=== PATIENT | female | born 1985 | race Caucasian/White ===

== ENCOUNTER 2020-06-18 18:43 | Inpatient (IN) ==
[2020-06-19] MEDS ORDERED: OXYTOCIN 30 UNITS/500 ML BAG IV PRN ×3 (10:27→18:21)
[2020-06-19 10:46] LABS: Hemoglobin 11.6 g/dL (12.0-16.0); Mean Corpuscular Hemoglobin 29.8 pg (25-34); Mean Platelet Volume 11.2 fL (7.4-10.4); Platelet Count 208 K/uL (130-400); RDW Coefficient of Variation 13.2 % (11.5-14.5); RDW Standard Deviation 43.1 fL (36.4-46.3); Red Blood Count 3.89 M/uL (4.2-5.4); White Blood Count 8.73 K/uL (4.8-10.8)
[2020-06-19 10:55] LABS: Mean Corpuscular Hgb Conc 33.1 g/dL (32-36)
[2020-06-19] MEDS: LACTATED RINGER'S 1,000 ML IV PRN ×2 (11:37→15:06)
[2020-06-19] MEDS ORDERED: BUPIVACAINE 0.25% 30 ML VIAL ONE (15:33)
[2020-06-19] MEDS ORDERED: ePHEDrine sulfate 50 MG/ML AMP ONE (15:33)
[2020-06-19] MEDS ORDERED: fentaNYL citrate 100 MCG/2 ML VIAL ONE (15:33)
[2020-06-19] MEDS ORDERED: fentaNYL 2MCG/ML ROPIV 1.25MG/ML 100 ML BAG EPI ONE (15:34)
[2020-06-19] MEDS ORDERED: NALOXONE HCL 0.4 MG/1 ML VIAL/CARP IV PRN (15:46)
[2020-06-19] MEDS ORDERED: ONDANSETRON INJ 2 MG/ML 2 ML VIAL IV PRN (15:46)
[2020-06-19] MEDS ORDERED: fentaNYL 2MCG/ML ROPIV 1.25MG/ML 100 ML BAG EPI PRN (15:46)
[2020-06-19] MEDS ORDERED: NALOXONE HCL 1 MG in SODIUM CHLORIDE 0.9% 1000ML 1,000 ML IV PRN (15:46)
[2020-06-19] MEDS ORDERED: ePHEDrine sulfate 50 MG/ML AMP IV PRN (15:46)
[2020-06-19] MEDS ORDERED: DiphenhydrAMINE HCL 50 MG/ML VIAL IV PRN (15:46)
--- NOTE | 2020-06-19 15:47 | Anesthesiology Consultation ---
Date of Service June 19, 2020 Assessment & Plan (1) Encounter for pre-operative examination: Chart Review Chart Review: Patient NOT seen in Pre Admission Testing and Acceptable Risk for Labor Epidural Consults Requested none ASA ASA2 Proposed Anesthesia Anesthesia Type: Labor Epidural Risk / Benefits Reviewed With: PT / POA / Parent / Guardian, Accepts Plan and Informed Consent Obtained History Height/Weight Height: 5 ft 5 in Weight: 68.946 kg Allergies Allergy/AdvReac Type Severity Reaction Status Date / Time cat dander Allergy Severe Anaphylaxis Verified 06/19/20 11:00 levofloxacin Allergy Unknown dizziness Verified 06/19/20 11:00 sumatriptan Allergy Unknown UNKNOWN Verified 06/19/20 11:00 Medications Home Medications Medication Instructions Recorded Confirmed Last Taken prenat.vits,stephenie,gpt-czzb-ligdx 1 tab PO DAILY 10/02/19 06/19/20 Unknown ondansetron 8 mg disintegrating 8 mg PO DAILY #30 tab 12/16/19 06/19/20 Unknown tablet promethazine 25 mg tablet 25 mg PO Q6H PRN #20 tab 01/06/20 06/19/20 Unknown Active Medications Generic Name Dose Route Start Last Admin Trade Name Freq PRN Reason Stop Dose Admin Lactated Ringer's 1,000 mls @ 125 mls/hr 06/19/20 10:27 06/19/20 15:38 Lr IV 06/21/20 10:26 125 mls/hr .Q8H PRN Infusion L&D Protocol Protocol Oxytocin 30 units in 500 mls @ 8 mls/hr 06/19/20 10:27 06/19/20 15:00 Pitocin IV 06/21/20 10:26 0.48 units/hr .Q24H PRN 8 mls/hr Labor Induction/Augmentation Titration Protocol 0.48 UNITS/HR NPO Date Last Intake of Fluids: 06/19/20 Time Last Intake of Fluids: 12:00 Date Last Intake of Solids: 06/19/20 Time Last Intake of Solids: 06:00 Past Medical History Medical History Allergic rhinitis (Inactive) Bulimia nervosa (Resolved 03/11/13) History of eating disorder, 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 Encounter for anatomic survey Fibroadenoma H/O bulimia nervosa Hx of migraines Hx of ovarian cyst Hx of sigmoidoscopy Hx of varicella Exercise / Class Metabolic Activity II 4-5 Yardwork/Stairs/Walk up hill Past Family History Family History Grandfather (Maternal) Colorectal cancer Sister Heart defect, congenital Aunt Diabetes Uncle Diabetes Mother Esophageal reflux Fibrocystic disease of breast Father Pancreatic cancer Hyperlipidemia Hypertension Nephrolithiasis Diabetes Dyslipidemia Grandmother (Maternal) Skin cancer Denies family history of Ovarian cancer Breast cancer Past Surgical History Surgical History History of sigmoidoscopy 2008 Hx of breast biopsy Hx of tooth extraction Past Anesthesia History No Hx of Anesthesia Complications and No Family Hx of Anesthesia Complications History of PONV No Hx of PONV and No Hx of Motion Sickness Social History Smoking Status: Never smoker Hx Alcohol Use: No Hx Substance Use: No substance use type: does not use Physical Exam Vital Signs Last Vital Signs Temp 37.0 C 06/19/20 10:08 Pulse 87 06/19/20 16:13 Resp 20 06/19/20 10:08 BP 106/57 L 06/19/20 16:13 Pulse Ox 98 06/19/20 16:10 ENMT Mouth: no dentition abnormality Thyromental Distance: > or= 3.5 Finger Breadths Mallampati Class: II Neck normal visual inspection Respiratory normal respiratory effort Auscultation: lungs clear to auscultation bilaterally Cardiovascular Rate/Rhythm: regular rate and regular rhythm Psychiatric Orientation: alert Testing Laboratory Results 06/19/20 10:36
[2020-06-19] MEDS ORDERED: OXYCODONE/ACETAMINOPHEN 5mg/325mg TAB PO PRN (18:21)
[2020-06-19] MEDS ORDERED: DIPHTHERIA/TETANUS/PERTUSSIS 0.5 ML SYR/VIAL IM ONE (18:21)
[2020-06-19] MEDS ORDERED: ACETAMINOPHEN 325 MG TAB PO PRN (18:21)
[2020-06-19] MEDS ORDERED: bisacodyL 10 MG SUPP PR PRN (18:21)
[2020-06-19] MEDS ORDERED: HYDROCORTISONE ACETATE 25 MG SUPP PR PRN (18:21)
[2020-06-19] MEDS ORDERED: SUPERCREAM 0.870% 15 GM JAR EXT PRN (18:21)
[2020-06-19] MEDS ORDERED: BENZOCAINE 20% AER SPR 82.5 GM CAN EXT PRN (18:21)
--- NOTE | 2020-06-19 18:30 | Delivery Summary ---
Vaginal Delivery Summary Date of Service June 19, 2020 Patient is a 34-year-old -0-0-2 white female EDC of 06/19/2020 who presented for elective induction of labor. She received. A cervical balloon the evening of 06/18/2020. She represented for continuation of the induction today. Pitocin augmentation was begun and when she was 3 cm dilated membranes were ruptured for clear fluid. She progressed to full dilation with effective epidural analgesia. She pushed effectively for delivery of a viable female over intact perin eum. A loose nuchal cord was reduced prior to delivery and the rest of the . There was vigorous crying and the was moving all 4 limbs after delivery. After approximately 1 minute the cord was clamped and cut. The placenta was expressed intact with a three-vessel cord. A first-degree perineal laceration was repaired with 3-0 chromic in the usual fashion. bleeding was controlled with dilute Pitocin. Estimated blood loss was 200 cc.
--- NOTE | 2020-06-19 18:31 | Delivery Summary ---
Vaginal Delivery Summary Date of Service June 19, 2020 [facility] [place] Vaginal Delivery Charge Vaginal Delivery Codes: 13393 global code for the antepartum, delivery, and post-
--- NOTE | 2020-06-19 21:03 | Anesthesia Procedure Note ---
Date of Service June 19, 2020 Anesthesia Post Epidural Note Vital Signs Vital Signs: Temp Pulse Resp BP Pulse Ox 37.1 C 81 18 111/63 97 06/19/20 20:18 06/19/20 20:18 06/19/20 20:18 06/19/20 20:18 06/19/20 20:15 Pain Intensity Lower Abdomen: Pain Intensity: 0 Notes Mental Status: alert / awake / arousable Nausea / Vomiting: adequately controlled Pain: adequately controlled Airway Patency, RR, SpO2: stable & adequate BP & HR: stable & adequate Hydration State: stable & adequate Neuraxial Anesthesia: was administered and sensory block is resolving Anesthetic Complications: no major complications apparent and Pt Satisfied with anesthetic care Epidural: Removed without complications and With tip intact
[2020-06-19] MEDS: DOCUSATE SODIUM 100 MG CAP PO SCH (21:30)
[2020-06-19] MEDS: IBUPROFEN 600 MG TAB PO PRN (23:06)
[2020-06-20] MEDS: IBUPROFEN 600 MG TAB PO PRN ×3 (03:30→16:00)
[2020-06-20 06:58] LABS: Hematocrit (blood only) 33.2 % (37-47); Hemoglobin 11.2 g/dL (12.0-16.0); Mean Corpuscular Hemoglobin 30.2 pg (25-34); Mean Corpuscular Hgb Conc 33.7 g/dL (32-36); Mean Corpuscular Volume 89.5 fL (80-100); Mean Platelet Volume 11.8 fL (7.4-10.4); Platelet Count 172 K/uL (130-400); RDW Coefficient of Variation 13.1 % (11.5-14.5); RDW Standard Deviation 42.5 fL (36.4-46.3); Red Blood Count 3.71 M/uL (4.2-5.4); White Blood Count 10.22 K/uL (4.8-10.8)
--- NOTE | 2020-06-20 07:07 | Obstetrical Progress Note ---
Date of Service <Sven Chang MD - Last Filed: 06/20/20 07:08> June 20, 2020 Assessment & Plan <Sven Chang MD - Last Filed: 06/20/20 07:08> (1) : - Feels well today. Eating well, voiding well, ambulating well. - Pain well controlled with analgesics. - Routine care - After discharge will have 6 week followup. Subjective <Sven Chang MD - Last Filed: 06/20/20 07:08> Lynda is a 34 y/o female ; PPD #1 following spontaneous vaginal delivery at 40+ weeks. Doing well this morning. Light abdominal cramping & 2/10 pain well managed on analgesics. Voiding well. Tolerating meals overnight and able to ambulate some. Some persistent lochia with some improvement this morning. Breast feeding well. Rubella immune. Blood typeA negative. Baby's blood type was O negative. Says she feels ready to go home today. Review of Systems Constitutional: denies fever, chills, sweat, headache Respiratory: denies shortness of breath, difficulty breathing Cardiac: denies chest pain, palpitations, chest pressure Breast: denies breast pain : denies dysuria Physical Exam <Sven Chang MD - Last Filed: 06/20/20 07:08> General: Alert, oriented. No acute distress. Cardiac: Regular rate and rhythm, no murmurs/rubs/gallops. Respiratory: Clear to auscultation bilaterally a/p, no wheezes/rales/rhonchi. No increased work of breathing. Symmetrical chest rise. No respiratory distress. Abdomen: Soft, nontender, nondistended. Bowel sounds present. Uterus: Uterine fundus firm, palpable 1cm below umbilicus. Lower Extremities: No lower extremity edema or swelling. No deep calf pain. Norberto's negative bilaterally. Results & Data <Sven Chang MD - Last Filed: 06/20/20 07:08> Vital Signs (Past 12 Hours) Vital Signs Temp Pulse Pulse Resp BP BP Pulse Ox 06/20/20 03:20 36.5 C 75 16 98/62 L 06/19/20 23:00 36.7 C 86 18 133/77 98 06/19/20 20:40 37.1 C 79 16 126/79 97 06/19/20 20:18 37.1 C 81 18 111/63 06/19/20 20:15 80 97 06/19/20 20:10 79 98 06/19/20 20:05 74 98 06/19/20 20:03 74 111/69 06/19/20 20:00 75 98 06/19/20 19:55 73 97 06/19/20 19:50 71 98 06/19/20 19:48 70 18 110/65 06/19/20 19:45 67 97 06/19/20 19:40 72 98 06/19/20 19:35 70 99 06/19/20 19:33 68 18 114/72 06/19/20 19:30 70 98 06/19/20 19:25 75 98 06/19/20 19:20 78 98 06/19/20 19:18 74 18 113/79 06/19/20 19:15 76 98 06/19/20 19:10 93 H 97 <Mago Cordova MD, FACOG - Last Filed: 06/20/20 09:14> Co-Signing Physician Notes Resident Physician Supervision Note: I interviewed and examined the patient. Discussed with Dr. Cantu and agree with findings and plan as documented in the note. Any exceptions or clarifications are listed here: [None] Documented By: Mago Cordova MD, FACOG Resident Activity Tracking <Sven Chang MD - Last Filed: 06/20/20 07:08> Resident Involvement: Resident Care Provided Care Provided: OB Delivery
[2020-06-20] MEDS ORDERED: PRENATAL VITAMIN 1 TAB PO SCH (08:00)
[2020-06-20] MEDS: DOCUSATE SODIUM 100 MG CAP PO SCH (08:32)
[2020-06-20] MEDS ORDERED: bisacodyL 5 MG TABEC PO SCH (20:00)
== END 2020-06-20 20:00 | disposition home or self-care (01) | DRG 807 ==
LOC: 4S1 06-19 09:55 → 4S2 06-19 20:52